=== PATIENT | male | born 1965 | race Two or more races ===

== ENCOUNTER 2020-09-08 17:09 | Emergency (ER) | payer OTHER ==
[~2020-09-08] VITALS: Ht 172.7 cm; Wt 86.2 kg
--- NOTE | 2020-09-08 17:41 | NUR ---
BIBS FROM HOME TO ER BED 7. AAOX4. NOT IN RESP DISTRESS. AMBULATORY. CAME IN FOR L TESTICULAR [place] W/ SWELLING FOR THE PAST WEEK. PER PT, IT STARTED AFTER MOVING A HEAVY STUFF. PT HAVE GONE TO THE URGENT CARE AND TAKING ANTIBIOTIC NAD IBUPROPHEN BUT STILL NO RELIEF. PAIN IS RATED @ 2/10 WITH MAX PAIN OF 7/10 AT TIMES. PROVIDER WAS AT THE BEDSIDE FOR EVAL, CHAPERONED BY ME. ORDERS RECEIVED, NOTED AND CARRIED OUT.
--- NOTE | 2020-09-08 17:55 | NUR ---
US AT BEDSIDE
[2020-09-08 18:05] LABS: BILIRUBIN,URINE Negative (NEGATIVE); COLOR,URINE YELLOW (YELLOW); LEUKOCYTE ESTERASE ,URINE Negative (NEGATIVE); NITRITE, URINE Negative (NEGATIVE); PROTEIN,URINE Negative (NEGATIVE); UGLUCOSE Negative (NEGATIVE); UROBILINOGEN,URINE 0.2 EU/dL (0.2)
[2020-09-08 18:06] LABS: BACTERIA,URINE None seen /HPF (None Seen); SQUAMOUS EPITHELIAL CELL,UR Few /HPF (None Seen); WBC,URINE 0-2 /HPF (0-3)
[2020-09-08] MEDS ORDERED: HYDR-4209 PO (18:44)
[2020-09-08] MEDS ORDERED: LIDOCAINE /MPF 1% VIAL 5 ML VIAL ONE (18:48)
[2020-09-08] MEDS ORDERED: AZITHROMYCIN 250 MG TABLET ONE (18:48)
[2020-09-08] MEDS ORDERED: CEFTRIAXONE 500 MG VIAL ONE (18:48)
[2020-09-08] MEDS: CEFTRIAXONE 500 MG VIAL IM ONE (18:50)
[2020-09-08] MEDS: AZITHROMYCIN 250 MG TABLET PO ONE (18:50)
--- NOTE | 2020-09-08 18:55 | NUR ---
Patient discharged to home in stable condition. Written and verbal after care instructions given. Patient verbalizes understanding of instruction.
[2020-09-08 18:56] VITALS: BP 138/74
== END 2020-09-08 18:56 | disposition home or self-care (01) ==
LOC: ER 17:16
DX: N45.1 Epididymitis (principal); N43.2 Other hydrocele; F31.9 Bipolar disorder, unspecified; R00.0 Tachycardia, unspecified; Z79.899 Other long term (current) drug therapy
CPT/HCPCS: 76870; 81001; 87491; 87591; 96372; 99284; J0696; J3490

== ENCOUNTER 2021-06-11 10:03 | Emergency (ER) | payer OTHER ==
[~2021-06-11] VITALS: Ht 172.7 cm; Wt 86.2 kg
[~2021-06-11 10:03] MED LIST: HYDR-4209 PO
[2021-06-11 10:48] VITALS: BP 123/96
[2021-06-11] MEDS ORDERED: NEOM10DR11 OT (11:00)
--- NOTE | 2021-06-11 11:04 | NUR ---
Patient discharged to home in stable condition. Written and verbal after care instructions given. Patient verbalizes understanding of instruction.
== END 2021-06-11 11:04 | disposition home or self-care (01) ==
LOC: ER 10:06
DX: H92.03 Otalgia, bilateral (principal)